=== PATIENT | female | born 1950 | race Caucasian/White ===

== ENCOUNTER → 2019-03-22 | Day surgery (SDC) | payer MEDICARE ==
[~2019-03-22] MED LIST: Lactated Ringers 1,000 ML IV SCH; Propofol 200 MG/20 ML SDV IV ONE
[2019-03-22 09:32] VITALS: BP 116/62; PULSE 60
--- NOTE | 2019-03-22 10:35 | OR ---
DATE OF OPERATION: 03/22/2019 PREOPERATIVE DIAGNOSIS: FAMILY HISTORY OF COLON CARCINOMA. POSTOPERATIVE DIAGNOSIS: FAMILY HISTORY OF COLON CARCINOMA. SURGEON: Macario Hrenandez MD PROCEDURE: FULL-LENGTH COLONOSCOPY WITH FORCEPS POLYP REMOVAL X2. ANESTHESIA: MAC. COMPLICATIONS: None. SPECIMEN: Two small sessile polyps, each 3 mm or less. FINDINGS: 1. Full-length colonoscopy. 2. Small sessile polyps x2. 3. Minimal diverticular disease. RECOMMENDATIONS: Followup colonoscopy in 5 years. INDICATIONS: The patient had a prior colonoscopy 5 years ago. Her brother was just diagnosed with colon cancer, so she is in for a screening scope. DESCRIPTION OF PROCEDURE: The patient was prepped and draped, placed in the left lateral decubitus position. A lubricated Olympus colonoscope was inserted and easily advanced to the cecum. We were able to directly visualize the ileocecal valve and appendiceal orifice. The bowel prep was excellent. Upon withdrawal right in the cecal pouch, the patient had a very small flat 2-mm likely hyperplastic polyp, removed in its entirety with a forceps. The rest of the right transverse and descending colons were completely benign. The sigmoid colon had a few scattered diverticula, but minimal. No acute inflammatory changes. No vascular abnormalities or signs of colitis. At around 25 cm near the rectosigmoid junction, the patient had a 2nd small flat sessile polyp about 3 mm, also removed with a forceps biopsy x2 in its entirety. The rectal vault appeared benign. Retroflexion showed some perianal hemorrhoid disease. Air was then suctioned, scope removed without complication. JONNY/JOSE /[id number]
== END ==
LOC: CC.SDS 07:29
PROVIDERS: ATTEND Family Medicine
DX: Z12.11 Encounter for screening for malignant neoplasm of colon (principal); K63.5 Polyp of colon; K57.30 Diverticulosis of large intestine without perforation or abscess without bleeding; K64.9 Unspecified hemorrhoids; I10 Essential (primary) hypertension; I25.10 Atherosclerotic heart disease of native coronary artery without angina pectoris; J44.9 Chronic obstructive pulmonary disease, unspecified; E78.5 Hyperlipidemia, unspecified; E03.9 Hypothyroidism, unspecified; M19.90 Unspecified osteoarthritis, unspecified site; M81.0 Age-related osteoporosis without current pathological fracture; F32.9 Major depressive disorder, single episode, unspecified; Z80.0 Family history of malignant neoplasm of digestive organs; Z88.1 Allergy status to other antibiotic agents; Z79.899 Other long term (current) drug therapy; Z79.82 Long term (current) use of aspirin
CPT/HCPCS: 45380; J2704; J7120; 00812; 88305